=== PATIENT | female | born 1970 ===

== ENCOUNTER 2019-01-08 11:30 | Inpatient (IN) ==
[2019-01-08] MEDS ORDERED: SODIUM CHLORIDE 0.9% 500 ML IV STA (12:12)
[2019-01-08] MEDS ORDERED: ONDANSETRON 4 MG/2 ML VIAL IV STA (12:12)
[2019-01-08] MEDS ORDERED: HYDROmorphone 2 MG/1 ML VIAL IV STA (12:12)
[2019-01-08] MEDS ORDERED: CEFTAROLINE 600 MG in SODIUM CHLORIDE 0.9% 100 ML IV STA (12:14)
[2019-01-08] MEDS ORDERED: LEVOFLOXACIN INJ 750 MG in PREMIX 1 EACH IV ONE (12:32)
[2019-01-08] MEDS ORDERED: metroNIDAZOLE INJ 500 MG in PREMIX 1 EACH IV ONE (12:32)
[2019-01-08] MEDS ORDERED: HYDROmorphone 2 MG/1 ML VIAL IV PRN (12:35)
[2019-01-08] MEDS ORDERED: KETOROLAC 10 MG TABLET PO PRN (12:35)
[2019-01-08] MEDS ORDERED: ONDANSETRON 4 MG/2 ML VIAL IV PRN (12:35)
[2019-01-08] MEDS ORDERED: ACETAMINOPHEN 325 MG TABLET PO PRN (12:35)
[2019-01-08] MEDS ORDERED: ALBUTEROL/IPRATROPIUM 3 ML NEB RESP TX PRN (12:35)
[2019-01-08] MEDS ORDERED: GLUCAGON 1 MG VIAL IM PRN ×2 (12:45→16:14)
[2019-01-08] MEDS ORDERED: DEXTROSE 10% 250 ML BAG IV PRN (12:45)
[2019-01-08 12:54] LABS: Basophils % 0.5 % (0.0-0.8); Eosinophils # 0.2 10*3/uL (0.0-0.87); Hematocrit 37.4 VOL% (35.7-47.0); Hemoglobin 13.1 GM/DL (12.0-16.0); Immature Granulocytes % 0.9 %; Immature Granulocytes Absolute 0.07 #; Lymphocytes # 2.4 10*3/uL (1.4-4.0); Lymphocytes % 31.8 % (21.3-54.2); Mean Corpuscular Volume 87.4 FL (87-102); Mean Platelet Volume 9.4 FL (9.6-12.0); Monocytes % 6.2 % (1.7-12.7); Neutrophils % 58.6 % (38.7-73.9); Platelet Count 341 T/CUMM (130-400); Red Blood Count 4.28 MC/CUMM (3.8-5.5); Red Cell Distribution Width 12.3 % (9.3-17.3); White Blood Count 7.5 T/CUMM (4-12)
[2019-01-08] MEDS ORDERED: BUPIVACAINE 0.25% /EPI 10 ML VIAL ONE (12:55)
[2019-01-08] MEDS ORDERED: LIDOCAINE 1% 20 ML VIAL ONE (12:55)
[2019-01-08 13:13] LABS: Eosinophils 1 % (0-10); Lymphocytes 32 % (20-55); Segmented Neutrophils 62 % (50-85); Total Cells Counted 100
[2019-01-08 13:14] LABS: Atypical Lymphocytes Few; Hypochromasia Slight; Platelet Estimate Adequate
[2019-01-08 13:17] LABS: Alanine Aminotransferase 36 U/L (13-56); Albumin 2.3 G/DL (3.4-5.0); Alkaline Phosphatase 128 U/L (45-117); Amylase 37 U/L (25-115); Aspartate Amino Transferase 38 U/L (0-37); Bilirubin,Total < 0.39 MG/DL (0.2-1.0); Blood Urea Nitrogen 11 MG/DL (7-18); Calcium 8.1 MG/DL (8.5-10.1); Glucose 250 MG/DL (74-106); Osmolality,Calculated 285.4 MOS/KG (273-304); Total Protein 7.2 G/DL (6.4-8.3)
[2019-01-08] MEDS: LACTATED RINGERS 1,000 ML IV SCH ×2 (15:05→18:49)
[2019-01-08] MEDS: PIPERACILLIN/TAZOBACTAM 3,375 MG in SODIUM CHLORIDE 0.9% 100 ML IV SCH ×2 (15:05→23:43)
[2019-01-08] MEDS ORDERED: DEXTROSE 50% 25 GM/50 ML VIAL IV PRN (16:14)
[2019-01-08] MEDS: INSULIN LISPRO 100 UNIT/ML SUBCUT SCH ×2 (16:35→21:35)
[2019-01-08] MEDS ORDERED: INSULIN LISPRO 100 UNIT/ML SUBCUT SCH (17:00)
[2019-01-08] MEDS ORDERED: PROPOFOL 200 MG/20 ML VIAL IV ONE (18:16)
[2019-01-08] MEDS ORDERED: SEVOFLURANE 1 UNIT/15 MINUTE INH ONE (18:16)
[2019-01-09 06:21] LABS: Basophils % 0.2 % (0.0-0.8); Eosinophils # 0.2 10*3/uL (0.0-0.87); Hematocrit 38.1 VOL% (35.7-47.0); Hemoglobin 13.1 GM/DL (12.0-16.0); Immature Granulocytes % 0.6 %; Immature Granulocytes Absolute 0.05 #; Lymphocytes # 2.5 10*3/uL (1.4-4.0); Lymphocytes % 28.8 % (21.3-54.2); Mean Corpuscular HGB Conc 34.4 GM/DL (32-36); Mean Corpuscular Volume 88.8 FL (87-102); Mean Platelet Volume 9.6 FL (9.6-12.0); Monocytes % 5.8 % (1.7-12.7); Neutrophils % 62.6 % (38.7-73.9); Platelet Count 364 T/CUMM (130-400); Red Blood Count 4.29 MC/CUMM (3.8-5.5); Red Cell Distribution Width 12.7 % (9.3-17.3); White Blood Count 8.8 T/CUMM (4-12)
[2019-01-09] MEDS: PIPERACILLIN/TAZOBACTAM 3,375 MG in SODIUM CHLORIDE 0.9% 100 ML IV SCH ×3 (06:37→23:54)
[2019-01-09 06:40] LABS: Calcium 8.2 MG/DL (8.5-10.1); Osmolality,Calculated 284.4 MOS/KG (273-304)
[2019-01-09 06:44] LABS: Risk Ratio 4.61; VLDL CHOLESTEROL 28.8 MG/DL
[2019-01-09] MEDS: LACTATED RINGERS 1,000 ML IV SCH ×4 (07:31→22:09)
[2019-01-09] MEDS: INSULIN LISPRO 100 UNIT/ML SUBCUT SCH ×4 (07:32→22:06)
[2019-01-09] MEDS ORDERED: MAGNESIUM SULF RIDER 4 GM in PREMIX 1 EACH IV PRN (08:21)
[2019-01-09] MEDS ORDERED: MAGNESIUM SULF RIDER 2 GM in PREMIX 1 EACH IV PRN (08:21)
[2019-01-09] MEDS: BISACODYL 5 MG TABLET PO SCH (09:27)
[2019-01-09] MEDS: PANTOPRAZOLE 40 MG TABLET PO SCH (09:27)
[2019-01-09] MEDS ORDERED: INSULIN GLARGINE 100 UNIT/ML SUBCUT ONE (10:04)
[2019-01-09] MEDS ORDERED: INSULIN GLARGINE 100 UNIT/ML SUBCUT SCH (21:00)
[2019-01-10] MEDS: PIPERACILLIN/TAZOBACTAM 3,375 MG in SODIUM CHLORIDE 0.9% 100 ML IV SCH (06:31)
[2019-01-10] MEDS: LACTATED RINGERS 1,000 ML IV SCH (09:06)
[2019-01-10] MEDS: INSULIN LISPRO 100 UNIT/ML SUBCUT SCH ×2 (09:17→13:00)
[2019-01-10] MEDS: PANTOPRAZOLE 40 MG TABLET PO SCH (09:18)
[2019-01-10] MEDS: BISACODYL 5 MG TABLET PO SCH (09:18)
[2019-01-10] MEDS ORDERED: SODIUM HYPOCHLORITE 0.25% IRRIG 473 ML BOTTLE TOP SCH (10:30)
[2019-01-10 11:19] VITALS: BP 121/55
== END 2019-01-10 14:05 | disposition home or self-care (01) | DRG 623 ==
LOC: EDBD → EDUNIT# → N.ED 11:30 → N.EDINP 12:35 → N.3E 14:00
PROVIDERS: ADMIT Surgery; ATTEND Surgery